=== PATIENT | female | born 1985 | race Caucasian/White ===

== ENCOUNTER 2018-06-14 12:59 | Emergency (ER) | payer OTHER ==
[~2018-06-14] VITALS: Ht 152.4 cm; Wt 93.0 kg
[2018-06-14 13:03] VITALS: BP 162/95; Ht 152.4 cm; Wt 93.0 kg
== END 2018-06-14 14:09 | disposition home or self-care (01) ==
LOC: ED 12:59
DX: S93.402A Sprain of unspecified ligament of left ankle, initial encounter (principal); X58.XXXA Exposure to other specified factors, initial encounter; Y93.89 Activity, other specified; Y92.89 Other specified places as the place of occurrence of the external cause; Y99.8 Other external cause status
CPT/HCPCS: Q0092